=== PATIENT | male | born 1975 | race Two or more races ===

== ENCOUNTER 2023-02-16 09:32 | Day surgery (SDC) | payer OTHER ==
[~2023-02-16] VITALS: Ht 172.7 cm; Wt 84.8 kg
[2023-02-16] MEDS ORDERED: fentaNYL citrate 0.05 MG/ML VIAL ONE (10:58)
[2023-02-16] MEDS ORDERED: diphenhydrAMINE 50 MG/ML VIAL ONE (10:58)
[2023-02-16] MEDS ORDERED: LIDOCAINE 2% 100 MG/5 ML UJET TP ONE (10:59)
[2023-02-16] MEDS ORDERED: MIDAZOLAM 5 MG/5 ML VIAL ONE (10:59)
[2023-02-16] MEDS ORDERED: MIDAZOLAM 2 MG/2 ML VIAL IVP ONE (12:15)
[2023-02-16] MEDS ORDERED: fentaNYL citrate 0.05 MG/ML VIAL IVP ONE (12:15)
[2023-02-16] MEDS ORDERED: diphenhydrAMINE 50 MG/ML VIAL IVP ONE (12:15)
== END 2023-02-16 13:28 | disposition home or self-care (01) ==
LOC: MDS 09:32 → MMU 09:38 → MDS 13:28
PROVIDERS: ATTEND Internal Medicine Gastroenterology
DX: C18.7 Malignant neoplasm of sigmoid colon (principal); C16.9 Malignant neoplasm of stomach, unspecified; F17.210 Nicotine dependence, cigarettes, uncomplicated; Z79.899 Other long term (current) drug therapy; Z80.3 Family history of malignant neoplasm of breast
CPT/HCPCS: 43239; 88305; 88312; 88313; 88342; J1200; J2250; J3010